=== PATIENT | female | born 1990 | race African-American/Black ===

== ENCOUNTER → 2016-11-19 | Outpatient (CLI) | payer BC ==
[~2016-11-19] MED LIST: DEPAKOTE (UD)250 M1 PO; GILDESS1 EAC1 PO; METFORMIN PO; PROAIR HFA8.5 GM INH; QUETIAPINE FUMA50 MG PO
[2016-11-19 10:14] LABS: HEMATOCRIT 44.8 % (35.0-45.0); HEMOGLOBIN 14.3 gm/dL (12.0-16.0); MEAN CELL VOLUME 85.3 FL (83-96); MEAN CORPUSCULAR HEMOGLOBIN 27.3 PG (28-34); MEAN PLATELET VOLUME 10.4 FL (6.5-11.5); RED BLOOD COUNT 5.25 X10e (3.90-5.30); RED CELL DISTRIBUTION WIDTH 13.2 % (11.0-15.5); WHITE BLOOD COUNT 4.5 X10e3 (4.0-10.5)
== END | disposition home or self-care (01) ==
LOC: CLAB 09:35
PROVIDERS: Internal Medicine
DX: R19.7 Diarrhea, unspecified (principal)
CPT/HCPCS: 36415; 83630; 85027; 87045; 87427; 87493; 87899